=== PATIENT | male | born 1955 | race Two or more races ===

== ENCOUNTER 2024-12-26 20:33 | Emergency (ER) | payer OTHER ==
[~2024-12-26] VITALS: Ht 167.6 cm; Wt 81.6 kg
[2024-12-26 21:21] LABS: PLATELET COUNT (AUTO) 218 K/uL (150-450); RED BLOOD CELL COUNT(AUTO) 4.55 MIL/uL (4.5-6.0); RED CELL DISTRIBUTION WIDTH 13.6 % (11.5-15.0); WHITE BLOOD COUNT (AUTO) 7.1 K/uL (4.3-11.0)
[2024-12-26 21:31] LABS: CALCIUM, SERUM 9.4 mg/dL (8.5-10.1); CREATININE 0.8 mg/dL (0.6-1.3); SODIUM SERUM 137 mmol/L (136-145); UREA NITROGEN, BLOOD 18 mg/dL (7-18)
[2024-12-26 21:35] LABS: INR 0.99 (0.91-1.10)
[2024-12-26 21:44] LABS: ASPARTATE AMINOTRANSFERASE 16 U/L (15-37); NT-PRO BNP 47 pg/mL (0-125); TOTAL PROTEIN, SERUM 7.4 g/dL (6.4-8.2)
[2024-12-26 22:17] VITALS: BP 143/67; TEMP 97.9; O2SAT 98
== END 2024-12-26 22:17 | disposition left against medical advice (07) ==
LOC: ER 20:45
DX: I45.9 Conduction disorder, unspecified (principal); I10 Essential (primary) hypertension; R06.02 Shortness of breath; E11.9 Type 2 diabetes mellitus without complications; Z79.4 Long term (current) use of insulin
CPT/HCPCS: 36415; 71045-TC; 80048-TC; 80076-TC; 83880; 84484-TC; 85025-TC; 85378-TC; 85730-TC; 86850-TC